=== PATIENT | female | born 1995 | race Two or more races ===

== ENCOUNTER 2020-05-19 17:07 | Outpatient (REF) | payer OTHER, SELFPAY | END 2020-05-19 17:08 | disposition home or self-care (01) | LOC: HO.LAB 17:07 | PROVIDERS: Visit Provider Internal Medicine | DX: Z20.828 Contact with and (suspected) exposure to other viral communicable diseases (principal) | CPT/HCPCS: C9803; U0003 ==

== ENCOUNTER → 2020-11-11 09:28 | Outpatient (BNVA) | payer OTHER, SELFPAY | PROVIDERS: PCP Internal Medicine; Referring Provider Internal Medicine; Visit Provider Psychiatry & Neurology Neurology | DX: Z13.89 Encounter for screening for other disorder (principal) | CPT/HCPCS: 99202 ==

== ENCOUNTER → 2021-02-03 09:56 | Outpatient (BNVA) | payer OTHER, SELFPAY | PROVIDERS: PCP Internal Medicine; Visit Provider Psychiatry & Neurology Neurology ==

== ENCOUNTER → 2021-02-04 11:09 | Outpatient (REF) | payer OTHER, SELFPAY ==
--- NOTE | ~2021-02-04 | XR_ITS ---
EXAMINATION: XR CHEST CLINICAL INFORMATION: Shortness of breath COMPARISON: None TECHNIQUE: 2 views of the chest were obtained. FINDINGS: The lungs are well-expanded and clear of acute process. The heart size and pulmonary vascularity is normal. No gross bony abnormality seen. XR/XR chest 2V IMPRESSION: Unremarkable chest exam.
== END ==
LOC: HO.SL 11:09
PROVIDERS: PCP Internal Medicine; Visit Provider Psychiatry & Neurology Neurology
DX: G47.33 Obstructive sleep apnea (adult) (pediatric) (principal); R06.02 Shortness of breath
CPT/HCPCS: 71046; 95806

== ENCOUNTER 2021-02-04 13:47 | Outpatient (REF) | payer OTHER, SELFPAY ==
[2021-02-04 16:29] LABS: MANUAL DIFF FLAG NO
[2021-02-04 16:33] LABS: Basophils Percent Auto 0.3 % (0-2); Eosinophils Absolute Auto 0.1 X10*3/uL (0.0-0.4); Eosinophils Percent Auto 1.1 % (0-4); Hematocrit 40.4 % (37-47); Hemoglobin 13.2 g/dl (12.0-16.0); Imm Gran Abs Auto 0.02 X10*3/uL (0.00-0.03); Imm Gran Pct Auto 0.2 % (0.0-0.4); Lymphocytes Absolute Auto 2.1 X10*3/uL (1.2-4.9); Lymphocytes Percent Auto 22.7 % (20-40); Mean Corpuscular HGB Conc 32.7 g/dl (31.0-35.0); Mean Corpuscular Volume 82.8 fL (80-98); Mean Platelet Volume 10.1 fL (9.4-12.3); Monocytes Absolute Auto 0.6 X10*3/uL (0.1-1.2); Neutrophils Absolute Auto 6.2 X10*3/uL (2.0-8.3); Neutrophils Percent Auto 68.7 % (45-73); Platelet Count 489 X10*3/uL (160-400); Red Blood Count 4.88 X10*6/uL (4.20-5.50); Red Cell Distribution Width 12.7 % (11.0-16.0); White Blood Count 9.1 X10*3/uL (4.8-10.8)
[2021-02-04 16:51] LABS: Anion Gap 14 (12-20); Blood Urea Nitrogen 12 mg/dL (9-16); Calcium 9.7 mg/dL (8.4-10.2); Carbon Dioxide 23 mmol/L (22-29); Chloride 105 mmol/L (96-108); Estimated Glomerular Filt Rate > 60; Glucose Random 82 mg/dL (60-115); Potassium 4.2 mmol/L (3.3-5.1); Sodium 138 mmol/L (135-145)
[2021-02-04 16:52] LABS: D Dimer < 200 NG/ML
== END 2021-02-04 13:48 | disposition home or self-care (01) ==
LOC: HO.HMGCX 13:47
PROVIDERS: PCP Internal Medicine; Visit Provider Nurse Practitioner Family
DX: R06.02 Shortness of breath (principal)
CPT/HCPCS: 36415; 80048; 85025; 85379

== ENCOUNTER 2021-11-09 09:00 | Outpatient (RCR) | payer OTHER, SELFPAY ==
--- NOTE | 2021-09-17 17:26 | MHC.PT.EP ---
[facility] [place] Office [place] Office [place] Office [address] Nallely Higgins [address] [phone] F: [phone] F: [phone] F: [phone] F: [phone] Physical Therapy Plan of Care Date of Evaluation: Date of Surgery: Diagnosis: LBP unspecified. Assessment: Pt is a 26 y/o female referred to PT for eval and treat of LBP who presents with lumbopelvic dysfunction resulting in decreased tolerance and ability to perform static standing and sitting tasks for duration as well as lifting objects of weight, and disturbed sleep secondary to decreased hip and core strength, +prone instability test, as well as decreased posture, increased tissue tension, Pelvic inflairing, and pain. Pt is deemed an appropriate candidate to receive skilled PT in order to address her physical limitations to improve her functional ability. Frequency and Duration: The patient will be seen 2 x / wk x 5 wks. Short Term Goals: initiate HEP improve baseline pain to < 4/10; initial 7/10. Intermediate Goals: I with HEP improve B hip abd MMT to > 4+/5; initial 4/5. Improve TrAC MMT to > good; initial : fair (-) Pt will report < 1/4 disturbed nights' sleep d/t back pain; initial: 1/2 disturbed. Treatment Plan: Modalities to reduce pain, spasms and effusion. Manual therapy to restore motion and function. Therapeutic exercise to improve strength and flexibility. Neuromuscular re-education for posture and balance. Therapeutic activities to return to functional activities of daily living. Electronically signed by: David Delgado PT. Please sign and return to therapist. Thank you for your referral.
--- NOTE | 2021-11-09 13:52 | MHC.PT.DC ---
[facility] [place] Office [place] Office [place] Office [address] Laurita Higgins [address] [phone] F: [phone] F: [phone] F: [phone] F: [phone] Physical Therapy Discharge Report Diagnosis: LBP unspecified. Date of Surgery: Date of Evaluation: 09/17/21 Date of Discharge: 11/09/21 Treatments to Date: 12 Cancellations to Date: No Shows to Date: Discharge Status: Achieved Goals Improved Function Independent with HEP Discharge Summary: Marcella has been an active and motivated participant in her therapy in and out of the clinic, she has met all of her therapeutic goals, is I with a comprehensive home program for spinal stability and mobility. She is in agreement with DC today. Electronically signed by: David Delgado PT. Please sign and return to therapist. Thank you for your referral.
== END 2021-11-09 13:52 | disposition home or self-care (01) ==
LOC: HO.PTCHIC 09:00
PROVIDERS: Visit Provider Internal Medicine
DX: M54.50 Low back pain, unspecified (principal)
CPT/HCPCS: 97014; 97110; 97140; 97161; 97530

== ENCOUNTER 2021-11-17 08:04 | Outpatient (REF) | payer OTHER, SELFPAY ==
[2021-11-17 11:27] LABS: MANUAL DIFF FLAG NO
[2021-11-17 11:34] LABS: Basophils Percent Auto 0.4 % (0-2); Eosinophils Absolute Auto 0.1 X10*3/uL (0.0-0.4); Eosinophils Percent Auto 2.1 % (0-4); Hematocrit 38.6 % (37.0-47.0); Hemoglobin 12.2 g/dl (12.0-16.0); Imm Gran Abs Auto 0.02 X10*3/uL (0.00-0.03); Imm Gran Pct Auto 0.3 % (0.0-0.4); Lymphocytes Absolute Auto 1.8 X10*3/uL (1.2-4.9); Lymphocytes Percent Auto 26.7 % (20-40); Mean Corpuscular HGB Conc 31.6 g/dl (31.0-35.0); Mean Corpuscular Hemoglobin 26.7 pg (27.0-33.0); Mean Corpuscular Volume 84.5 fL (80.0-98.0); Mean Platelet Volume 10.4 fL (9.4-12.3); Monocytes Absolute Auto 0.4 X10*3/uL (0.1-1.2); Monocytes Percent Auto 6.5 % (2-11); Neutrophils Absolute Auto 4.4 x10*3/uL (2.0-8.3); Platelet Count 466 X10*3/uL (160-400); Red Blood Count 4.57 X10*6/uL (4.20-5.50); Red Cell Distribution Width 13.2 % (11.0-16.0); White Blood Count 6.8 X10*3/uL (4.8-10.8)
[2021-11-17 11:53] LABS: Alanine Aminotransferase 19 U/L (0-31); Anion Gap 10 (12-20); Aspartate Amino Transferase 17 U/L (5-31); Blood Urea Nitrogen 14 mg/dL (9-16); C Reactive Protein 0.24 mg/dL (< or = 0.50); Carbon Dioxide 24 mmol/L (22-29); Chloride 108 mmol/L (96-108); Cholesterol 155 mg/dL; Estimated Glomerular Filt Rate > 60; Glucose Fasting 86 mg/dL (60-99); HDL Cholesterol 44 mg/dL; LDL Cholesterol Calculated 98 mg/dl; Potassium 4.4 mmol/L (3.3-5.1); Sodium 138 mmol/L (135-145); Triglycerides 65 mg/dL
[2021-11-17 12:16] LABS: TSH reflex Free T4 0.66 uIU/mL (0.32-4.0); Vitamin D 25-OH Total 11.8 ng/mL (>30)
[2021-11-17 12:19] LABS: Folate 10.8 ng/mL (> or = 4.0); Vitamin B12 337 pg/mL (200-900)
[2021-11-17 12:29] LABS: Erythrocyte Sedimentation Rate 10 MM/HR (0-20)
== END 2021-11-17 08:05 | disposition home or self-care (01) ==
LOC: HO.HMGCLDS 08:04
PROVIDERS: Visit Provider Internal Medicine
DX: Z00.01 Encounter for general adult medical examination with abnormal findings (principal); M79.609 Pain in unspecified limb; R20.2 Paresthesia of skin; R53.83 Other fatigue
CPT/HCPCS: 36415; 80048; 80061; 82306; 82607; 82746; 84443; 84450; 84460; 85025; 85652; 86140

== ENCOUNTER 2021-12-31 10:39 | Outpatient (REF) | payer OTHER, SELFPAY ==
--- NOTE | ~2021-12-31 | XR_ITS ---
EXAMINATION: XR LUMBOSACRAL SPINE CLINICAL INFORMATION: M54.50 - Low back pain, unspecified. COMPARISON: Dorsal spine 12/31/2021 TECHNIQUE: Three views of the lumbosacral spine. FINDINGS: Normal lumbar segmentation with 5 nonrib-bearing lumbar vertebrae of normal height and normal lumbar lordosis. No lumbar vertebral compression, spondylolisthesis, or disc space narrowing. No destructive process. The SI joints and visualized sacrum are unremarkable. XR/XR lumbar spine 2-3V IMPRESSION: Unremarkable examination.
--- NOTE | ~2021-12-31 | XR_ITS ---
EXAMINATION: XR THORACOLUMBAR SPINE CLINICAL INFORMATION: M54.89 - Other dorsalgia. COMPARISON: Chest radiographs 02/04/2021 TECHNIQUE: Dorsal spine is imaged in 3 views. FINDINGS: Normal thoracic segmentation with 12 rib-bearing thoracic vertebrae of normal height and normal thoracic kyphosis. No vertebral compression, disc narrowing, spondylolisthesis, destructive process, or paraspinal soft tissue swelling. Visualized lungs clear. Posterior costophrenic sulci are well-defined. XR/XR thoracic spine 2V IMPRESSION: Unremarkable thoracic spine.
[2021-12-31 14:00] LABS: Appearance Urine HAZY; Color Urine YELLOW; Glucose Urine UA NEG (NEG); Leukocyte Esterase Urine 1+ (NEG); Nitrite Urine POS (NEG); PH 5.5 (5.0-8.0); Specific Gravity - Urine 1.025 (1.005-1.025); UACC Culture Trigger YES; Urine Blood 3+ (NEG); Urine Ketones NEG (NEG); Urine Protein NEG (NEG-TRACE)
[2021-12-31 14:11] LABS: Bacteria Urine 4+ /LPF
[2021-12-31 14:19] LABS: C Reactive Protein 0.58 mg/dL (< or = 0.50)
[2021-12-31 14:50] LABS: Erythrocyte Sedimentation Rate 20 MM/HR (0-20)
== END 2021-12-31 10:40 | disposition home or self-care (01) ==
LOC: HO.HMGCX 10:39
PROVIDERS: PCP Internal Medicine; Visit Provider Internal Medicine
DX: M54.89 Other dorsalgia (principal)
CPT/HCPCS: 36415; 72070; 72100; 81001; 81003; 85652; 86140; 87086; 87088; 87186

== ENCOUNTER 2022-02-23 16:53 | Outpatient (REF) | payer OTHER, SELFPAY | END 2022-02-23 16:54 | disposition home or self-care (01) | LOC: HO.LAB 16:53 | PROVIDERS: PCP Internal Medicine; Visit Provider Internal Medicine | DX: E55.9 Vitamin D deficiency, unspecified (principal); R53.83 Other fatigue | CPT/HCPCS: 36415; 82306 ==

== ENCOUNTER 2022-10-30 13:06 | Outpatient (REF) | payer OTHER, SELFPAY ==
[2022-10-30 15:17] LABS: MANUAL DIFF FLAG NO
[2022-10-30 15:21] LABS: Basophils Percent Auto 0.5 % (0-2); Eosinophils Absolute Auto 0.1 X10*3/uL (0.0-0.4); Eosinophils Percent Auto 1.5 % (0-4); Hematocrit 41.1 % (37.0-47.0); Hemoglobin 13.2 g/dl (12.0-16.0); Imm Gran Abs Auto 0.02 X10*3/uL (0.00-0.03); Imm Gran Pct Auto 0.2 % (0.0-0.4); Lymphocytes Percent Auto 24.1 % (20-40); Mean Corpuscular HGB Conc 32.1 g/dl (31.0-35.0); Mean Corpuscular Hemoglobin 26.5 pg (27.0-33.0); Mean Corpuscular Volume 82.5 fL (80.0-98.0); Mean Platelet Volume 10.5 fL (9.4-12.3); Monocytes Absolute Auto 0.6 X10*3/uL (0.1-1.2); Monocytes Percent Auto 6.7 % (2-11); Neutrophils Absolute Auto 5.5 x10*3/uL (2.0-8.3); Platelet Count 450 X10*3/uL (160-400); Red Blood Count 4.98 X10*6/uL (4.20-5.50); Red Cell Distribution Width 13.2 % (11.0-16.0); White Blood Count 8.2 X10*3/uL (4.8-10.8)
[2022-10-30 15:25] LABS: Estimated Average Glucose 105 mg/dL; Hemoglobin A1c % 5.3 %
[2022-10-30 16:30] LABS: Anion Gap 11 (12-20); Blood Urea Nitrogen 13 mg/dL (9-16); Calcium 9.5 mg/dL (8.4-10.2); Carbon Dioxide 28 mmol/L (22-29); Chloride 107 mmol/L (96-108); Estimated Glomerular Filt Rate > 60; Glucose Random 104 mg/dL (60-115); Potassium 4.3 mmol/L (3.3-5.1); Sodium 142 mmol/L (135-145)
== END 2022-10-30 13:07 | disposition home or self-care (01) ==
LOC: HO.HMGCLDS 13:06
PROVIDERS: PCP Internal Medicine; Visit Provider Physician Assistant
DX: R42 Dizziness and giddiness (principal); R51.9 Headache, unspecified
CPT/HCPCS: 36415; 80048; 83036; 84443; 85025

== ENCOUNTER 2022-11-23 08:40 | Outpatient (REF) | payer OTHER, SELFPAY ==
[2022-11-23 11:12] LABS: MANUAL DIFF FLAG NO
[2022-11-23 11:27] LABS: Appearance Urine Cloudy; Color Urine Yellow; Glucose Urine UA Negative (Negative); Leukocyte Esterase Urine Trace (Negative); Nitrite Urine Positive (Negative); Specific Gravity - Urine 1.025 (1.005-1.025); UMIC TRIGGER UACC YES; Urine Blood Small (1+) (Negative); Urine Ketones Negative (Negative); Urine Protein Negative (Neg-Trace)
[2022-11-23 11:34] LABS: Basophils Percent Auto 0.5 % (0-2); Eosinophils Percent Auto 0.3 % (0-4); Hematocrit 39.5 % (37.0-47.0); Hemoglobin 12.8 g/dl (12.0-16.0); Imm Gran Abs Auto 0.01 X10*3/uL (0.00-0.03); Imm Gran Pct Auto 0.2 % (0.0-0.4); Lymphocytes Absolute Auto 1.6 X10*3/uL (1.2-4.9); Lymphocytes Percent Auto 25.6 % (20-40); Mean Corpuscular HGB Conc 32.4 g/dl (31.0-35.0); Mean Corpuscular Hemoglobin 26.7 pg (27.0-33.0); Mean Corpuscular Volume 82.3 fL (80.0-98.0); Mean Platelet Volume 10.4 fL (9.4-12.3); Monocytes Absolute Auto 0.5 X10*3/uL (0.1-1.2); Monocytes Percent Auto 8.6 % (2-11); Neutrophils Percent Auto 64.8 % (45-73); Platelet Count 451 X10*3/uL (160-400); Red Cell Distribution Width 13.4 % (11.0-16.0); White Blood Count 6.2 X10*3/uL (4.8-10.8)
[2022-11-23 11:45] LABS: Bacteria Urine 4+ (None Seen); Hyaline Casts Urine 0-2 /LPF (0-2); Squamous Epithelial Cell Urine 0-2 /HPF (0-2); UACC Culture Trigger YES
[2022-11-23 12:00] LABS: Cholesterol 172 mg/dL; HDL Cholesterol 50 mg/dL; LDL Cholesterol Calculated 112 mg/dl; Triglycerides 51 mg/dL
[2022-11-23 12:18] LABS: Vitamin D 25-OH Total 28.4 ng/mL (>30)
== END 2022-11-23 08:41 | disposition home or self-care (01) ==
LOC: HO.HMGCLDS 08:40
PROVIDERS: PCP Internal Medicine; Visit Provider Internal Medicine
DX: Z00.01 Encounter for general adult medical examination with abnormal findings (principal); R13.10 Dysphagia, unspecified; R06.09 Other forms of dyspnea; D75.839 Thrombocytosis, unspecified
CPT/HCPCS: 36415; 80061; 81001; 82306; 84443; 85025; 87086; 87088; 87186

== ENCOUNTER 2023-02-18 07:22 | Outpatient (REF) | payer OTHER, SELFPAY ==
--- NOTE | 2023-02-18 08:08 | PFT_ITS ---
FLOWS: 1. FEV1 96% of predicted at 2.65 L. 2. FVC 90% of predicted at 2.90 L. 3. FEV1 to FVC ratio of 0.91. 4. No bronchodilator response except in small to medium airways. LUNG VOLUMES: 1. Total lung capacity 73% of predicted at 3.16 L. 2. Residual volume 29% of predicted at 0.33 L. 3. Slow vital capacity 88% of predicted at 3.83 L. 4. Expiratory reserve volume 30% of predicted at 0.37 L. 5. Diffusion capacity is normal. IMPRESSION: Mild restrictive ventilatory defect with no bronchodilator response except in small to medium airways. Decreased expiratory reserve volume suggest extrathoracic restriction, likely secondary to abdominal obesity. Damien Moss MD AP/MODL / [phone]
== END 2023-02-18 07:23 | disposition home or self-care (01) ==
LOC: HO.RESP 07:22
PROVIDERS: PCP Internal Medicine; Visit Provider Internal Medicine
DX: R06.09 Other forms of dyspnea (principal)
CPT/HCPCS: 94010; 94727; 94729

== ENCOUNTER → 2023-02-18 08:08 | Outpatient (BNV) | payer OTHER, SELFPAY | PROVIDERS: PCP Internal Medicine; Visit Provider Internal Medicine Pulmonary Disease | DX: R06.09 Other forms of dyspnea (principal) | CPT/HCPCS: 94060; 94727; 94729 ==

== ENCOUNTER 2023-03-17 08:28 | Outpatient (REF) | payer OTHER, SELFPAY | END 2023-03-17 08:29 | disposition home or self-care (01) | LOC: HO.RESP 08:28 | PROVIDERS: PCP Internal Medicine; Visit Provider Internal Medicine | DX: Z13.89 Encounter for screening for other disorder (principal) ==

== ENCOUNTER 2023-04-22 12:39 | Outpatient (AMB) | payer OTHER, SELFPAY ==
[2023-04-22 13:05] VITALS: BP 118/70; PULSE 85; O2SAT 98; BMI 31.9
--- NOTE | 2023-04-22 13:05 | A.OFFPC_ITS ---
Vital Signs 04/22/23 13:05 Height 4 ft 11 in Weight 158 lb BMI 31.9 BP 118/70 Blood Pressure Location Lt brachial Position Sitting Pulse 85 Pulse Source Pulse Oximeter Pulse Oximetry (%) 98 Intake Visit Reasons: discuss weight gain go over test results Intake Note: pt is here today to discuss weight gain and test results Allergies sumatriptan Adverse Reaction (Unknown, Verified 04/24/23 02:23) anxiety Medication List - Last Reconciled 04/24/23 by Joan Tovar MD albuterol sulfate 90 mcg/actuation (ProAir HFA) 2 puffs inhalation Q4-6H PRN fluticasone propionate 50 mcg/actuation (Children's Flonase Allergy Relief) 2 sprays intranasal DAILY Tobacco use date assessed: 04/22/23 Dental Screening Dental Screen Date: 04/22/23 Did you have a dental visit in the last 12 months?: No Did you have a dental problem in the last 6 months where you did not have access to dental care?: No Was dental information given to patient?: Patient has dentist HPI discuss weight gain go over test results HPI Details 28-year-old lady here today complaining of rapid weight gain after starting depo-vera approximately 3 months ago, prescribed by her OBGYN patient states that she used to weigh 145 lb after she delivered her baby. Patient states that she has been exercising, has cut back on eating rice, bread, and soda. However she continues to gain weight. Stopped using Depo-Provera about 2 weeks ago. Also complains of joint pain and stiffness in last 2 digits in left hand. Denies trauma, hurts when she bends or tries to grasp anything with her left hand. She is also here to discuss results of her pulmonary function test. Still has occasional cough dry, nonproductive, with dyspnea on exertion , which has been present since she contract COVID several months ago. [facility] Medical History (Updated 04/24/23 @ 02:27 by Joan Tovar MD) Obesity (BMI 30.0-34.9) Chronic cough History of COVID-19 OROPEZA (dyspnea on exertion) Cholelithiasis Vitamin D deficiency Lumbago Witnessed apneic spells Surgical History Hx laparoscopic cholecystectomy History of eye surgery History of tonsillectomy Family History Father Unknown family medical history Mother Unknown family medical history Substance use disorder Brother No problems noted. Brother No problems noted. Brother No problems noted. Brother No problems noted. Brother No problems noted. Sister No problems noted. Sister No problems noted. Father Substance use disorder Social History Housing: Apartment Alcohol intake: current Alcohol intake frequency: a few times a month Patient Tobacco Use Status: Never used Tobacco e-Cigarette/Vaping Use: Never Used service: No Current occupational status: employed Cognitive needs: No Hearing needs: No Vision needs: Yes Female Reproductive History Menstrual Date of last menstrual period: 04/14/23 Questionnaire Thrive Questionnaire Date Thrive assessed: 11/23/22 AUDIT C Alcohol Use Questionnaire (AUDIT-C) 1. How often do you have a drink containing alcohol?: Monthly or less 2. How many drinks containing alcohol do you have on a typical day when you are drinking?: 1 or 2 Total Score: 1 ADAN-7 AMB Questionnaire ADAN-7 Date ADAN - 7 assessed: 11/23/22 Source: Developed by Drs. Quan Vera, Corinne Brunner, Ramos Motta and colleagues, with an educational tex from [employer]. Review of Systems Const Reports no additional complaints ENT Reports no additional complaints Card Denies chest pain, Denies chest pain with activity and Denies lightheadedness Resp Reports as per HPI GI Reports no additional complaints Reports no additional complaints Musc Reports no additional complaints and Reports as per HPI Skin/Breast Denies lesions Neuro Reports no additional complaints Endo Reports no additional complaints Ace/Lymph Reports no additional complaints Aller/Immun Reports no additional complaints Physical exam (Primary Care) Vital Signs: Last Vital Signs Pulse 85 04/22/23 13:05 BP 118/70 04/22/23 13:05 Pulse Ox 98 04/22/23 13:05 BMI result Body Mass Index 31.9 Tobacco/Smoking Status: Tobacco use Status Tobacco use date assessed 04/22/23 04/22/23 13:11 Patient Tobacco Use Status Never used Tobacco 04/22/23 13:11 e-Cigarette/Vaping Use Never Used 04/22/23 13:11 Thrive Assessment: Date of Thrive Assessment Date Thrive assessed 11/23/22 04/22/23 13:11 Const General: comfortable and no acute distress Nutritional Appearance: obese Orientation/consciousness: patient oriented x3 [facility] General nose exam: Normal external nose present Mouth: Normal oral and palatal mucosa present, oropharynx normal and moist mucous membranes Neck Other: Supple with no lymphadenopathy, thyroid gland nonpalpable Neck: Yes no meningeal signs Resp Auscultation: clear to auscultation bilaterally Cardio Other: S1-S2 present regular rate and rhythm GI Inspection: Yes obesity Palpation (GI): Soft to palpation, nontender, no guarding, not rigid and no masses Auscultation: normal bowel sounds Skin General skin exam: no rashes or lesions noted Neuro General: patient oriented x3, gait normal, moves all extremities, Normal light touch and pain sensation, no meningeal signs, no focal motor deficits and CN's II-XI intact bilaterally Extrem Other: Slight swelling noted on lateral aspect of left 5th digit, difficulty with making a fist with left hand,, pain elicited on hyperabduction of fingers Assessment and Plan Assessment & Plan (1) Pain in finger joint on movement: Code(s): M25.549 - Pain in joints of unspecified hand Plan: X-ray of left hand ordered, advised to try massaging diclofenac gel 1% which is available [id number] to affected area 3 to 4 times a day as needed for pain. (2) OROPEZA (dyspnea on exertion): Comment: Started 2 years ago after she had a COVID infection Code(s): R06.09 - Other forms of dyspnea Plan: Pulmonary function test showed possible restrictive component likely due to obesity, no significant response to bronchodilators, referral to pulmonary ordered (3) Chronic cough: Code(s): R05.3 - Chronic cough (4) Obesity (BMI 30.0-34.9): Code(s): E66.9 - Obesity, unspecified Plan: Referred to single ending machine operator Orders: Orders XR hand LT min 3V 04/22/23 M25.549 - Pain in joints of unspecified hand Referrals Pulmonary Medicine Referral R05.3 - Chronic cough, R06.09 - Other forms of dyspnea Coding Level of Care Code Est Pt Level 3 (87493) Diagnoses Pain in finger joint on movement M25.549 OROPEZA (dyspnea on exertion) R06.09 Chronic cough R05.3 Obesity (BMI 30.0-34.9) E66.9
== END 2023-04-22 14:13 | disposition home or self-care (01) ==
PROVIDERS: PCP Internal Medicine; Visit Provider Internal Medicine
DX: M25.549 Pain in joints of unspecified hand (principal); R06.09 Other forms of dyspnea; E66.9 Obesity, unspecified; Z68.31 Body mass index [BMI] 31.0-31.9, adult; R05.3 Chronic cough
CPT/HCPCS: 99213

== ENCOUNTER 2023-04-22 13:29 | Outpatient (REF) | payer OTHER, SELFPAY ==
--- NOTE | ~2023-04-22 | XR_ITS ---
EXAMINATION: XR HAND, LEFT CLINICAL INFORMATION: Pain in unspecified joints of hand COMPARISON: None available. TECHNIQUE: PA, lateral, and oblique views of the left hand. FINDINGS: Moderate degenerative changes first carpometacarpal joint with joint space narrowing and hypertrophic change. Alignment preserved. No displaced fracture. XR/XR hand LT min 3V IMPRESSION: Moderate degenerative changes first carpometacarpal joint. No displaced fracture. Recommend follow-up imaging in 10-14 days if fracture is suspected.
== END 2023-04-22 13:30 | disposition home or self-care (01) ==
LOC: HO.HMGCX 13:29
PROVIDERS: PCP Internal Medicine; Visit Provider Internal Medicine
DX: M25.542 Pain in joints of left hand (principal)
CPT/HCPCS: 73130

== ENCOUNTER 2024-05-23 08:02 | Outpatient (AMB) | payer OTHER, SELFPAY ==
--- NOTE | 2024-05-23 08:08 | MHC.OFFWIV ---
Intake Vital Signs 05/23/24 08:09 Height 4 ft 11 in Weight 164 lb BMI 33.1 BP 112/70 Blood Pressure Location Rt brachial Position Sitting Pulse 79 Pulse Source Pulse Oximeter Pulse Oximetry (%) 98 Intake Visit Reasons: EP Back pain, ltwrist, lt knee pain Intake Note: pt is here for back pain, left wrist pain, and left knee pain Patient Tobacco Use Status: Never used Tobacco Allergies sumatriptan Adverse Reaction (Unknown, Verified 05/23/24 08:09) anxiety Do you need a note to return to daycare/school/sports/work: No HPI HPI Comments History of Present Illness Details Patient is a 29-year-old female complaining of back pain and left wrist pain. She does have a baby and she is carrying around. She tells me she has chronic back pain and an MRI showed she had issues with 2 discs in her low back. She went to [facility] and they told her to do physical therapy which she did and they said if the pain gets worse she may need cortisone shots. She tells me the pain goes down her spine from her mid back to her low back but does not radiate into her buttocks. She tells me it is a dull aching pain. She denies any loss of control of her bladder or bowels. Her 2nd complaint is that her left wrist has been hurting her more. She states that she notices when she moves her wrist a certain way, it hurts more. She denies any injury to the wrist but notes that she is carrying around a baby in a carrier every day. She has not tried using a wrist brace. [facility] Medical History (Updated 05/23/24 @ 08:24 by Rachelle Ruiz PA-C) Lumbago Obesity (BMI 30.0-34.9) Chronic cough History of COVID-19 OROPEZA (dyspnea on exertion) Cholelithiasis Vitamin D deficiency Witnessed apneic spells Surgical History Hx laparoscopic cholecystectomy History of eye surgery History of tonsillectomy Family History Father Unknown family medical history Mother Unknown family medical history Substance use disorder Brother No problems noted. Brother No problems noted. Brother No problems noted. Brother No problems noted. Brother No problems noted. Sister No problems noted. Sister No problems noted. Father Substance use disorder Social History Housing: Apartment Alcohol intake: current Alcohol intake frequency: a few times a month Patient Tobacco Use Status: Never used Tobacco e-Cigarette/Vaping Use: Never Used service: No Current occupational status: employed Cognitive needs: No Hearing needs: No Vision needs: Yes Review of Systems Const All systems reviewed & are unremarkable except as noted in HPI and below Physical Exam Vital Signs: Last Vital Signs Pulse 79 05/23/24 08:09 BP 112/70 05/23/24 08:09 Pulse Ox 98 05/23/24 08:09 BMI result Body Mass Index 33.1 Const General: cooperative, healthy appearing and comfortable Orientation/consciousness: patient oriented x3 HEENT Head: Yes normal to inspection and Yes normocephalic General nose exam: Normal external nose present Face and sinus: Yes normal facial exam Eyes General: appearance normal, both eyes and all related structures Resp Effort & Inspection: normal respiratory effort and able to speak in complete sentences Back/Spine/Pelvis Cervical Spine: cervical ROM normal and No Cervical spine tenderness Thoracic/Lumbar Spine: thoracic and lumbar spine normal to inspection, pain with thoraco-lumbar ROM, paraspinal muscle tenderness bilaterally in the mid thoracic, in the lower thoracic, in the upper lumbar and in the mid lumbar, No thoracic spinal tenderness and lumbar spinal tenderness at L1, at L2 and at L3 Neuro General: patient oriented x3 Assessment & Plan Assessment & Plan (1) Left wrist pain: Code(s): M25.532 - Pain in left wrist Plan: Recommended wearing a wrist brace and trying to carry her child and a carrier using the right arm. Can take ibuprofen as needed for pain. If no improvement, she should follow up with her PCP. (2) Lumbago: Code(s): M54.50 - Low back pain, unspecified Qualifiers: Chronicity: acute Back pain laterality: midline Sciatica presence: without sciatica Qualified Code(s): M54.50 - Low back pain, unspecified Plan: Recommended she follow up with [facility] as she already is an established patient with them. Plan see above Coding Level of Care Code Est Pt Level 4 (65396) Diagnoses Left wrist pain M25.532 Acute midline low back pain without sciatica M54.50 Chronicity: acute Back pain laterality: midline Sciatica presence: without sciatica
[2024-05-23 08:09] VITALS: BP 112/70; PULSE 79; O2SAT 98; BMI 33.1
== END 2024-05-23 08:23 | disposition home or self-care (01) ==
PROVIDERS: PCP Internal Medicine; Visit Provider Physician Assistant
DX: M25.532 Pain in left wrist (principal); M54.50 Low back pain, unspecified

== ENCOUNTER → 2024-05-23 08:02 | Outpatient (BNVA) | payer OTHER, SELFPAY | PROVIDERS: PCP Internal Medicine; Visit Provider Physician Assistant | DX: M25.532 Pain in left wrist (principal); M54.50 Low back pain, unspecified | CPT/HCPCS: 99212 ==

== ENCOUNTER 2025-03-28 09:55 | Outpatient (AMB) | payer OTHER, SELFPAY ==
[2025-03-28 10:03] VITALS: BP 100/70; PULSE 85; RESP 16; TEMP 36.7; O2SAT 95; BMI 30.3
--- NOTE | 2025-03-28 10:03 | MHC.PC.OV ---
Vital Signs 03/28/25 10:03 Height 4 ft 11 in Weight 150 lb BMI 30.3 BP 100/70 Blood Pressure Location Rt brachial Position Sitting Respiration 16 Pulse 85 Pulse Source Pulse Oximeter Temp 98.0 F Temp Source Oral Pulse Oximetry (%) 95 Oxygen Delivery Method Room Air Intake Visit Reasons: migraines Intake Note: Pt is here today ED [facility] f/u migraines Allergies sumatriptan Adverse Reaction (Unknown, Verified 03/28/25 10:21) anxiety Medication List - Last Reconciled 03/28/25 by Joan Tovar MD albuterol sulfate 90 mcg/actuation (ProAir HFA) 2 puffs inhalation Q4-6H PRN fluticasone propionate 50 mcg/actuation (Children's Flonase Allergy Relief) 2 sprays intranasal DAILY Tobacco use date assessed: 04/22/23 Dental Screening Dental Screen Date: 04/22/23 HPI migraines HPI Details 30-year-old lady with history of migraine headaches, here today for follow-up. Was recently seen at the [facility] ER complaining of 5 day history of pain initially behind her right eye now spreading to both eyes , which is atypical for her usual headaches. Denies any accompanying photophobia, no change in vision no history of head trauma, no fever, but reports some nausea but no vomiting, no neurologic deficits. Took ibuprofen without any relief. Labs done at the ER showed no anemia, no electrolyte abnormality glucose levels within normal, CT scan of brain unremarkable. She was treated with a cocktail that includes Toradol, Compazine, Benadryl and given IV fluids, given a dose of Decadron with improvement of headache. At present patient states that she is feeling better, would like to be referred to neurology for further evaluation [facility] Medical History Lumbago Obesity (BMI 30.0-34.9) Chronic cough History of COVID-19 OROPEZA (dyspnea on exertion) Cholelithiasis Vitamin D deficiency Witnessed apneic spells Surgical History Hx laparoscopic cholecystectomy History of eye surgery History of tonsillectomy Family History Father Unknown family medical history Mother Unknown family medical history Substance use disorder Brother No problems noted. Brother No problems noted. Brother No problems noted. Brother No problems noted. Brother No problems noted. Sister No problems noted. Sister No problems noted. Father Substance use disorder Social History Housing: Apartment Alcohol intake: current Alcohol intake frequency: a few times a month Patient Tobacco Use Status: Never used Tobacco e-Cigarette/Vaping Use: Never Used service: No Current occupational status: employed Cognitive needs: No Hearing needs: No Vision needs: Yes Questionnaire Thrive Questionnaire Date Thrive assessed: 11/23/22 ADAN-7 AMB Questionnaire ADAN-7 Date ADAN - 7 assessed: 11/23/22 Source: Developed by Drs. Quan Vera, Corinne Brunner, Ramos Motta and colleagues, with an educational tex from [employer]. Review of Systems Const All systems reviewed & are unremarkable except as noted in HPI and below Physical exam (Primary Care) Vital Signs: Last Vital Signs Temp 98.0 F 03/28/25 10:03 Pulse 85 03/28/25 10:03 Resp 16 03/28/25 10:03 BP 100/70 03/28/25 10:03 Pulse Ox 95 03/28/25 10:03 Oxygen Delivery Method Room Air 03/28/25 10:03 BMI result Body Mass Index 30.3 Tobacco/Smoking Status: Tobacco use Status Tobacco use date assessed 04/22/23 03/28/25 10:05 Patient Tobacco Use Status Never used Tobacco 03/28/25 10:05 e-Cigarette/Vaping Use Never Used 03/28/25 10:05 Thrive Assessment: Date of Thrive Assessment Date Thrive assessed 11/23/22 03/28/25 10:05 Const General: no acute distress Nutritional Appearance: obese Orientation/consciousness: patient oriented x3 [facility] General nose exam: Normal external nose present Mouth: Normal oral and palatal mucosa present, oropharynx normal and moist mucous membranes Eyes General: appearance normal, both eyes and all related structures Neck Other: Supple with no lymphadenopathy, thyroid gland nonpalpable Neck: Yes no meningeal signs Resp Auscultation: clear to auscultation bilaterally Cardio Other: S1-S2 present regular rate and rhythm GI Inspection: Yes obesity Palpation (GI): Soft to palpation, nontender, no guarding, not rigid and no masses Auscultation: normal bowel sounds Skin General skin exam: no rashes or lesions noted Neuro General: patient oriented x3, gait normal, moves all extremities, Normal light touch and pain sensation, no meningeal signs, no focal motor deficits and CN's II-XI intact bilaterally Extrem General: Yes full ROM, Yes no joint enlargement, Yes no clubbing, cyanosis or edema and Yes normal gait Psych Affect: normal affect Coding Level of Care Code Est Pt Level 4 (08346) Diagnoses Recurrent headache R51.9 Assessment & Plan Assessment & Plan (1) Recurrent headache: Code(s): R51.9 - Headache, unspecified Plan: Prescription given for short course of Fioricet, to take only as needed for severe headaches. 10 capsules with no refills. Neurology consult ordered Orders: Referrals Neurology Referral R51.9 - Headache, unspecified Medications: New [id number] [id number] mg 1 cap PO .daily PRN 10 caps 0RF headache
--- OUTSIDE RECORDS SUMMARY | 2025-03-28 11:38 | XMS_ITS | Encounter Summary ---
Author Organization [facility] Address [address] [place] [id number] Phone Care Team Providers Care Gun Stock Maker Name Role Phone Joan Tovar MD Primary Care Provider Encounter Details Date Type Department Care Team (Late st Contact Info) Description 09/17/2022 Procedure [facility], Ct Scan - [address] [id number] Social History Tobacco Use Types Packs/Day Years Used Date Smoking Tobacco: Never Assessed Comments Unknown Sex and Gender Information Value Date Recorded Sex Assigned at Not on file Legal Sex Female 4:55 PM EST Gender Identity Not on file Sexual Orientation Not on file documented as of this encounter Functional Status * Calculated C-SSRS Risk Score (Lifetime/Recent) Answer Date of Assessment Author No Risk Indicated 09/17/2022 5:18 PM Josie Dominguez RN * [place] Suicide Severity Rating Scale (Screener/Recent Self-Report) Question Answer Date of Assessment Author 1. Wish to be (Past 1 Month) No 023 5:18 PM Josie Dominguez RN 2. Non-Specific Active Suici abhiijt Thoughts (Past 1 Month) No 09/17/2022 5:18 PM Ramses Dominguez RN 6. Suicidal Behavior (Lifetime) No 3 5:18 PM Josie Dominguez RN documented as of this encounter Plan of Treatment Not on file documented as of this encounter Visit Diagnoses Not on filedocumented in this encounter Care Teams Gun Stock Maker Relationship Specialty Start Date End Date Joan Tovar MD [facility] [place] [id number] PCP - General Internal Medicine 09/17/22 documented as of this encounter Additional Source Comments The information contained in this document represents components of the legal health record. It is not the complete legal health record.[facility]
--- OUTSIDE RECORDS SUMMARY | 2025-03-28 11:38 | XMS_ITS | Clinical Summary ---
Author Organization [facility] Address [address] [place] [phone] Phone Care Team Providers Care Seat Installer Name Role Phone Joan Tovar MD Primary Care Provider Allergies Active Allergy Reactions Criticality Noted Date Comments Sumatriptan 09/17/2022 Social History Tobacco Use Types Packs/Day Years Used Date Smoking Tobacco: Never Assessed Education Answer Date Recorded Are you interested in more education? Not on venkata e 11/06/2022 Are you concerned about learning? Not on file 11/06/2022 No 11/06/2022 No 11/06/2022 Digital Access Answer Date Recorded No 12/07/2022 No 12/07/2022 Reliable internet access at home? Not on file 12/07/2022 Device with a working camera? Not on file Intimate Partner Violence Answer Date R ecorded Are you denied basic needs s uch as food, clothing, or medical care? No 07/22/2023 In the past 12 months have y ou been in a relationship with a person who hurts, threatens, or tries to control you? No 07/22/2023 Are you denied basic needs s uch as food, clothing, or medical care? No 07/22/2023 In the past 12 months have y ou been in a relationship with a person who hurts, threatens, or tries to control you? No 07/22/2023 Comments Unknown Sex and Gender Information Value Date Recorded Sex Assigned at Not on file Legal Sex Female 4:55 PM EST Gender Identity Not on file Sexual Orientation Not on file Last Filed Vital Signs Vital Sign Reading Time Taken Comments Blood Pressure 117/76 07/22/2023 4:20 PM EST Pulse 90 07/22/2023 4:20 PM EST Temperature 37.2 C (98.9 F) 07/22/2023 4:20 PM EST Respiratory Rate 16 07/22/2023 4:20 PM EST Oxygen Saturation 97% 07/22/2023 4:20 PM EST Inhaled Oxygen Concentration - - Weight 71.7 kg (158 lb) 07/22/2023 1:29 PM EST Height 149.9 cm (4' 11 ) 07/22/2023 1:29 PM EST Body Mass Index 31.91 07/22/2023 1:29 PM EST Plan of Treatment Not on file Medical Devices [place] [id number] Care Teams Seat Installer Relationship Specialty Start Date End Date Joan Tovar MD [facility] [place] [address] PCP - General Internal Medicine 09/17/22 Additional Source Comments The information contained in this document represents components of the legal health record. It is not the complete legal health record.[facility]
== END 2025-03-28 12:00 | disposition home or self-care (01) ==
LOC: HO.HMCC 09:55
PROVIDERS: PCP Internal Medicine; Visit Provider Internal Medicine
DX: R51.9 Headache, unspecified (principal)

== ENCOUNTER → 2025-03-28 09:55 | Outpatient (BNVA) | payer OTHER, SELFPAY | PROVIDERS: PCP Internal Medicine; Visit Provider Internal Medicine | DX: G43.909 Migraine, unspecified, not intractable, without status migrainosus (principal) | CPT/HCPCS: 99212 ==

== ENCOUNTER 2025-04-29 14:47 | Outpatient (AMB) | payer OTHER, SELFPAY ==
--- NOTE | 2025-04-29 14:46 | A.OFFVIS_ITS ---
Vital Signs 04/29/25 15:05 Height 4 ft 11 in Weight 150 lb BMI 30.3 BP 112/74 Blood Pressure Location Rt brachial Position Sitting Respiration 16 Pulse 75 Pulse Source Pulse Oximeter Pulse Oximetry (%) 98 Oxygen Delivery Method Room Air Intake Visit Reasons: headache Hoop Maker Helper Machine Required: No Allergies sumatriptan Adverse Reaction (Unknown, Verified 04/29/25 15:20) vomiting Medication List - Last Reconciled 04/29/25 by Steff Link CNP albuterol sulfate 90 mcg/actuation (ProAir HFA) 2 puffs inhalation Q4-6H PRN lxlolidmih-ypxvpjrhmblli-erww 50-325-40 mg 1 tab PO Q12H PRN NS fluticasone propionate 50 mcg/actuation (Children's Flonase Allergy Relief) 2 sprays intranasal DAILY rimegepant (Nurtec ODT) 75 mg PO Q OTHER DAY PRN 30 days topiramate 25 mg PO DAILY 90 days HPI Comments Details: Marcella is a 30-year-old female patient with a past medical history of asthma who is presenting to the clinic for a headache evaluation. According to referral notes from primary care, she was seen in follow-up for a recent emergency room visit she has been seen at [facility] emergency room reporting a 5 day history of pain behind her right eye spreading to both eyes. This was atypical for her usual headache presentation. She denied any accompanying photophobia, visual changes, head traumas, fever but did note some nausea. She had no other deficits. Ibuprofen home without relieving her pain. CT scan of the brain performed in the emergency room was unremarkable. She was treated with IV Toradol, Compazine, Benadryl, and IV with and given a dose of Decadron with improvement in her headaches. She was given a short prescription for fioricet and given a referral to neurology for headache evaluatino and management. Today the patient reports that she was seen here in the past but about 6 years ago. She has been treated for migraines successfully with low-dose topiramate at bedtime. Over time, her migraines improved and she self discontinued the topiramate. She has been doing well off of medications for years until she had her son approximately 1 year ago. Over the course of the last year her migraines have been ramping up and becoming more frequent and has been longer in duration and more severe. Since going to the emergency room a few weeks ago, she feels that her migraines have been nearly constant. She did get partial relief with the migraine cocktail though a couple of days later her headache came back. She feels that she has some level of headache all of the time though intensity and severity of her headaches do vary day today. On average, she has an intense headache approximately 5 days per week. Her pain is typically unilateral but can be frontal, occipital, or to the crown of her head. She has a accompanying nausea, light sensitivity, and sound sensitivity. She denies any positional component. She denies any visual aura though when her headaches become most severe she does experience some blurry vision. She notes in the past she has had success with the topiramate and tolerated it well at a 25 mg daily dose. Headache characteristics: Time of onset: Teenager Location:Variable but often unilateral to the parietal or occipital areas Radiation:No Positional component:No Character: Variable but often throbbing and pulsating Severity: Can reach 10/10 requiring emergency room evaluation Duration: Can last a full week Frequency: Has been occurring daily for the last couple of weeks and prior to this has been at least 5 days per week over the last few months. Acute aggravating factors: Movement and any increase in activity Acute relieving factors: Rest and darkness Associated symptoms: Nausea, light sensitivity, and sound sensitivity and rarely some blurry vision Aura: None Headache triggers: Unknown Relation to menses: Currently on nexplanon for control. No obvious pattern with menses. Other related background information: Sleep: Awakes frequently due to children and also awakes frequently on her own. She does have some gasping arousals Stressors: Works 40hrs per week and has 2 young children at home Hydration: 3 oz per day Caffeine intake:Drinks 1-2 caffininated beverages per day Alcohol intake:None Substance use:Marijuana daily Tobacco use: None Last eye exam: Within the last year- normal exam. Last dental visit:Not since age 18. Denies clenching or grinding. History of head injury:No Family planning considerations:Currently on nexplanon. No plans for becoming . Past medication trials: Sumatriptan- Severe hot flashes, vomiting, and lightheadedness Fioricet- Currently taking with marginal benefit Topiramate 25mg - worked well in the past Prior workup: CT brain at [facility]- Per records was a normal study but imaging is not available for my review. [facility] Medical History Lumbago Obesity (BMI 30.0-34.9) Chronic cough History of COVID-19 OROPEZA (dyspnea on exertion) Cholelithiasis Vitamin D deficiency Witnessed apneic spells Surgical History Hx laparoscopic cholecystectomy History of eye surgery History of tonsillectomy Family History Father Unknown family medical history Mother Unknown family medical history Substance use disorder Brother No problems noted. Brother No problems noted. Brother No problems noted. Brother No problems noted. Brother No problems noted. Sister No problems noted. Sister No problems noted. Father Substance use disorder Social History Housing: Apartment Alcohol intake: current Alcohol intake frequency: a few times a month Patient Tobacco Use Status: Never used Tobacco e-Cigarette/Vaping Use: Never Used service: No Current occupational status: employed Cognitive needs: No Hearing needs: No Vision needs: Yes Review of Systems Const All systems reviewed & are unremarkable except as noted in HPI and below Physical Exam Const General: cooperative, healthy appearing, comfortable and no acute distress Nutritional Appearance: well nourished Orientation/consciousness: patient oriented x3 Limitations: no limitations HEENT Head: Yes normal to inspection and Yes normocephalic Eyes General: appearance normal, both eyes and all related structures Visual Reyes: normal visual reyes by confrontation Alignment and Position: alignment normal Periorbital: periorbital findings normal Eyelids: Yes eyelids normal Conjunctivae: conjunctivae normal Sclerae: sclerae normal Direct Ophthalmoscopy: normal light reflex, no papilledema and fundi normal bilaterally Neuro General: patient oriented x3, tone normal and deep tendon reflexes 2+ bilaterally Cranial nerves: Yes CN's II-XII intact bilaterally and Yes Facial sensation intact/muscles of mastication intact Cognition (Neuro): normal cognition Gait exam (Neuro): Normal gait present Motor exam (neuro): 5/5 motor strength present throughout and no tremor noted Sensory Exam: double simultaneous stimulation for sensation normal Romberg Test: Negative Pupils: Normal pupillary reactivity/response: bilateral Psych Appearance: grossly normal Mental Status: mental status grossly normal Speech and movement: Normal speech and movement present and Clear speech present Affect: normal affect Attitude: cooperative Thought process: Normal thought process present Thought content: Normal thought content present Insight: Good insight present (Psych) Judgement: Good judgement present (Psych) Assessment & Plan Assessment & Plan (1) Chronic migraine without aura without status migrainosus, not intractable: Code(s): G43.709 - Chronic migraine without aura, not intractable, without status migrainosus Category: Medical Plan Marcella is a 30-year-old female patient with a past medical history of asthma who is presenting to the clinic for a headache evaluation. Her headaches are consistent with chronic migraine. She has responded well to topiramate in the past. We will restart this for migraine prevention. She does have means of protection of at this time and we did review teratogenic effects of topiramate should she consider in the future. She was counseled on increasing her water intake as part of a means for added prevention. In terms of her acute therapy, she has had a very serious adverse reaction to sumatriptan in the past which included vomiting. I would consider the degree of her reaction an allergy and would avoid Triptan moving forward. For acute ther apy, I would like to start her on Nurtec 75 mg as needed. -start topiramate 25 mg at bedtime -start a trial of Nurtec 75 mg as needed for acute therapy -follow up in 2 months or sooner if needed Medications: New rimegepant (Nurtec ODT) 75 mg PO Q OTHER DAY PRN 8 tabs 5RF migraine headache 30 days topiramate 25 mg PO DAILY 90 tabs 3RF 90 days Coding Level of Care Code New Pt Level 4 (90209) Diagnoses Chronic migraine without aura without status migrainosus, not intractable G43.709
[2025-04-29 15:05] VITALS: BP 112/74; PULSE 75; RESP 16; O2SAT 98; BMI 30.3
--- OUTSIDE RECORDS SUMMARY | 2025-04-29 18:44 | XMS_ITS | Encounter Summary ---
Author Organization [facility] Address [address] [place] [phone] Phone Care Team Providers Care Grinder Set Up Operator Thread Name Role Phone Joan Tovar MD Primary Care Provider Encounter Details Date Type Department Care Team (Late st Contact Info) Description 09/17/2022 Procedure Pass [facility], Ct Scan - [address] [address] Social History Tobacco Use Types Packs/Day Years [...] 09/17/2022 5:18 PM Josie Dominguez RN * [place] Suicide Severity Rating Scale (Screener/Recent Self-Report) Question Answer Date of Assessment Author 1. Wish to be (Past 1 Month) No 023 5:18 PM Josie Dominguez RN 2. Non-Specific Active Suici abhijit Thoughts (Past 1 Month) No 09/17/2022 5:18 PM Ramses Dominguez RN 6. Suicidal Behavior (Lifetime) No 3 5:18 PM Josie Dominguez RN documented as of this encounter Plan of Treatment Not on file documented as of this encounter Visit Diagnoses Not on filedocumented in this encounter Care Teams Grinder Set Up Operator Thread Relationship Specialty Start Date End Date Joan Tovar MD [facility] [place] [address] PCP - General Internal Medicine 09/17/22 documented as of this encounter Additional Source Comments The information contained in this document represents components of the legal health record. It is not the complete legal health record.[facility]
--- OUTSIDE RECORDS SUMMARY | 2025-04-29 18:45 | XMS_ITS | Clinical Summary ---
Author Organization [facility] Address [address] [place] [phone] Phone Care Team Providers Care Personal Lines Account Manager Name Role Phone Joan Tovar MD Primary [...] Medical Devices Not on file Insurance ACO Care Teams Personal Lines Account Manager Relationship Specialty Start Date End Date Joan Tovar MD [facility] [place] [address] PCP - General Internal Medicine 09/17/22 Additional Source Comments The information contained in this document represents components of the legal health record. It is not the complete legal health record.[facility]
== END 2025-04-29 15:31 | disposition home or self-care (01) ==
LOC: HO.HSM 14:47
PROVIDERS: PCP Internal Medicine; Visit Provider Nurse Practitioner
DX: G43.709 Chronic migraine without aura, not intractable, without status migrainosus (principal)
CPT/HCPCS: 99204

== ENCOUNTER → 2025-04-29 14:47 | Outpatient (BNVA) | payer OTHER, SELFPAY | PROVIDERS: PCP Internal Medicine; Visit Provider Nurse Practitioner | DX: G43.709 Chronic migraine without aura, not intractable, without status migrainosus (principal) | CPT/HCPCS: 99202 ==

== ENCOUNTER 2025-06-26 15:28 | Outpatient (AMB) | payer OTHER, SELFPAY ==
--- NOTE | 2025-06-26 15:32 | A.OFFVIS_ITS ---
Intake Visit Reasons: 2M MIGRAINE Allergies sumatriptan Adverse Reaction (Unknown, Verified 04/29/25 15:20) vomiting Medication List - Last Reconciled 06/26/25 by Kingsley Chase MD albuterol sulfate 90 mcg/actuation (ProAir HFA) 2 puffs inhalation Q4-6H PRN geapwgdyms-myazhzvinmfew-hptj 50-325-40 mg 1 tab PO Q12H PRN NS fluticasone propionate 50 mcg/actuation (Children's Flonase Allergy Relief) 2 sprays intranasal DAILY rimegepant (Nurtec ODT) 75 mg PO Q OTHER DAY PRN 30 days HPI Comments Details: Marcella was doing well with her migraine with no migraine, but stopped her Topiramate 1 week ago as she had brain fog and was noted to have work impairment. She had taken Topiramate 7 yr sago with no issues. She has a history of asthma who is presenting to the clinic for a headache evaluation. According to referral notes from primary care, she was seen in follow-up for a recent emergency room visit she has been seen at [facility] emergency room reporting a 5 day history of pain behind her right eye spreading to both eyes. This was atypical for her usual headache presentation. She denied any accompanying photophobia, visual changes, head traumas, fever but did note some nausea. She had no other deficits. Ibuprofen home without relieving her pain. CT scan of the brain performed in the emergency room was unremarkable. She was treated with IV Toradol, Compazine, Benadryl, and IV with and given a dose of Decadron with improvement in her headaches. She was given a short prescription for akilah payan and given a referral to neurology for headache evaluatino and management. Today the patient reports that she was seen here in the past but about 6 years ago. She has been treated for migraines successfully with low-dose topiramate at bedtime. Over time, her migraines improved and she self discontinued the topiramate. She has been doing well off of medications for years until she had her son approximately 1 year ago. Over the course of the last year her migraines have been ramping up and becoming more frequent and has been longer in duration and more severe. Since going to the emergency room a few weeks ago, she feels that her migraines have been nearly constant. She did get partial relief with the migraine cocktail though a couple of days later her headache came back. She feels that she has some level of headache all of the time though intensity and severity of her headaches do vary day today. On average, she has an intense headache approximately 5 days per week. Her pain is typically unilateral but can be frontal, occipital, or to the crown of her head. She has a accompanying nausea, light sensitivity, and sound sensitivity. She denies any positional component. She denies any visual aura though when her headaches become most severe she does experience some blurry vision. She notes in the past she has had success with the topiramate and tolerated it well at a 25 mg daily dose. Headache characteristics: Time of onset: Teenager Location:Variable but often unilateral to the parietal or occipital areas Radiation:No Positional component:No Character: Variable but often throbbing and pulsating Severity: Can reach 10/10 requiring emergency room evaluation Duration: Can last a full week Frequency: Has been occurring daily for the last couple of weeks and prior to this has been at least 5 days per week over the last few months. Acute aggravating factors: Movement and any increase in activity Acute relieving factors: Rest and darkness Associated symptoms: Nausea, light sensitivity, and sound sensitivity and rarely some blurry vision Aura: None Headache triggers: Unknown Relation to menses: Currently on nexplanon for control. No obvious pattern with menses. Other related background information: Sleep: Awakes frequently due to children and also awakes frequently on her own. She does have some gasping arousals Stressors: Works 40hrs per week and has 2 young children at home Hydration: 3 oz per day Caffeine intake:Drinks 1-2 caffininated beverages per day Alcohol intake:None Substance use:Marijuana daily Tobacco use: None Last eye exam: Within the last year- normal exam. Last dental visit:Not since age 18. Denies clenching or grinding. History of head injury:No Family planning considerations:Currently on nexplanon. No plans for becoming . Past medication trials: Sumatriptan- Severe hot flashes, vomiting, and lightheadedness Fioricet- Currently taking with marginal benefit Topiramate 25mg - worked well in the past Prior workup: CT brain at [facility]- Per records was a normal study but imaging is not available for my review. [facility] Medical History Lumbago Obesity (BMI 30.0-34.9) Chronic cough History of COVID-19 OROPEZA (dyspnea on exertion) Cholelithiasis Vitamin D deficiency Witnessed apneic spells Surgical History Hx laparoscopic cholecystectomy History of eye surgery History of tonsillectomy Family History Father Unknown family medical history Mother Unknown family medical history Substance use disorder Brother No problems noted. Brother No problems noted. Brother No problems noted. Brother No problems noted. Brother No problems noted. Sister No problems noted. Sister No problems noted. Father Substance use disorder Social History Housing: Apartment Alcohol intake: current Alcohol intake frequency: a few times a month Patient Tobacco Use Status: Never used Tobacco e-Cigarette/Vaping Use: Never Used service: No Current occupational status: employed Cognitive needs: No Hearing needs: No Vision needs: Yes Review of Systems Const All systems reviewed & are unremarkable except as noted in HPI and below Physical Exam Const General: cooperative, healthy appearing, comfortable and no acute distress Nutritional Appearance: well nourished Orientation/consciousness: patient oriented x3 Limitations: no limitations HEENT Head: Yes normal to inspection and Yes normocephalic Eyes General: appearance normal, both eyes and all related structures Visual Reyes: normal visual reyes by confrontation Alignment and Position: alignment normal Periorbital: periorbital findings normal Eyelids: Yes eyelids normal Conjunctivae: conjunctivae normal Sclerae: sclerae normal Direct Ophthalmoscopy: normal light reflex, no papilledema and fundi normal bilaterally Neuro General: patient oriented x3, tone normal and deep tendon reflexes 2+ bilaterally Cranial nerves: Yes CN's II-XII intact bilaterally and Yes Facial sensation intact/muscles of mastication intact Cognition (Neuro): normal cognition Gait exam (Neuro): Normal gait present Motor exam (neuro): 5/5 motor strength present throughout and no tremor noted Sensory Exam: double simultaneous stimulation for sensation normal Romberg Test: Negative Pupils: Normal pupillary reactivity/response: bilateral Psych Appearance: grossly normal Mental Status: mental status grossly normal Speech and movement: Normal speech and movement present and Clear speech present Affect: normal affect Attitude: cooperative Thought process: Normal thought process present Thought content: Normal thought content present Insight: Good insight present (Psych) Judgement: Good judgement present (Psych) Assessment & Plan Assessment & Plan (1) Chronic migraine without aura without status migrainosus, not intractable: Code(s): G43.709 - Chronic migraine without aura, not intractable, without status migrainosus Category: Medical Plan Marcella is a 30-year-old female patient with a past medical history of asthma who has chronic migraine. She has responded well to topiramate 25mg in the past.Had to stop it after 7 weeks because of brain fog impairing work performance. If her migraine frequency tics up again, she will restart the topiramate 25 mg but take it at 18:00 rather than in the morning as she was doing. If it still gives her the brain fog she could try a half a pill, otherwise she would need to be switched to a different prophylactic therapy. She will make a follow-up appointment with Verena in 6 weeks For abortive treatment she has had a very serious adverse reaction to sumatriptan in the past which included vomiting. I would consider the degree of her reaction an allergy and would avoid Triptan moving forward. For acute therapy, I would like to start her on Nurtec 75 mg as needed. She also has Fioricet for PRN use Coding Level of Care Code Est Pt Level 4 (23908) Diagnoses Chronic migraine without aura without status migrainosus, not intractable G43.709
--- OUTSIDE RECORDS SUMMARY | 2025-06-26 20:24 | XMS_ITS | Clinical Summary ---
Author Organization [facility] Address [address] [place] [phone] Phone Care Team Providers Care Treating And Pumping Supervisor Name Role Phone Joan Tovar MD Primary [...] Not on file Insurance ACO Care Teams Treating And Pumping Supervisor Relationship Specialty Start Date End Date Joan Tovar MD [facility] [place] [address] PCP - General Internal Medicine 09/17/22 Additional Source Comments The information contained in this document represents components of the legal health record. It is not the complete legal health record.[facility]
--- OUTSIDE RECORDS SUMMARY | 2025-06-26 20:24 | XMS_ITS | Encounter Summary ---
Author Organization [facility] Address [address] [place] [phone] Phone Care Team Providers Care Rn Assessment Name Role Phone Joan Tovar MD Primary Care Provider Encounter Details Date Type Department Care Team (Late st Contact Info) Description 09/17/2022 Procedure Pass [facility], Ct Scan - [address] [address] Social History Tobacco Use Types Packs/Day Years [...] 09/17/2022 5:18 PM Josie Dominguez RN * [place] Suicide Severity Rating Scale (Screener/Recent Self-Report) Question [...] on filedocumented in this encounter Care Teams Rn Assessment Relationship Specialty Start Date End Date Joan Tovar MD [employer] [facility] [place] [address] PCP - General Internal Medicine 09/17/22 documented as of this encounter Additional Source Comments The information contained in this document represents components of the legal health record. It is not the complete legal health record.[facility]
== END 2025-06-26 15:46 | disposition home or self-care (01) ==
LOC: HO.HSM 15:28
PROVIDERS: PCP Internal Medicine; Visit Provider Psychiatry & Neurology Neurology
DX: G43.709 Chronic migraine without aura, not intractable, without status migrainosus (principal)
CPT/HCPCS: 99214

== ENCOUNTER → 2025-06-26 15:28 | Outpatient (BNVA) | payer OTHER, SELFPAY | PROVIDERS: PCP Internal Medicine; Visit Provider Psychiatry & Neurology Neurology | DX: G43.709 Chronic migraine without aura, not intractable, without status migrainosus (principal); Z79.899 Other long term (current) drug therapy | CPT/HCPCS: 99212 ==

== ENCOUNTER 2025-07-01 15:50 | Outpatient (AMB) | payer OTHER, SELFPAY ==
--- NOTE | 2025-07-01 16:18 | MHC.PC.OV ---
Vital Signs 07/01/25 16:19 Height 4 ft 11 in Weight 148 lb BMI 29.9 BP 100/64 Blood Pressure Location Lt brachial Position Sitting Respiration 16 Pulse 78 Pulse Source Pulse Oximeter Temp 98.9 F Temp Source Oral Pulse Oximetry (%) 100 Oxygen Delivery Method Room Air Intake Visit Reasons: PE Intake Note: Pt is here today for her PE: Last papsmear 12/02/21 Director Digital Communications Required: No Is last menstrual period known: Yes Last menstrual period: 06/01/25 Allergies sumatriptan Adverse Reaction (Unknown, Verified 07/01/25 16:31) vomiting Medication List - Last Reconciled 07/01/25 by Joan Tovar MD albuterol sulfate 90 mcg/actuation (ProAir HFA) 2 puffs inhalation Q4-6H PRN fluticasone propionate 50 mcg/actuation (Children's Flonase Allergy Relief) 2 sprays intranasal DAILY rimegepant (Nurtec ODT) 75 mg PO Q OTHER DAY PRN 30 days topiramate 12.5 mg PO QPM Tobacco use date assessed: 07/01/25 Dental Screening Dental Screen Date: 07/01/25 HPI PE HPI Details The patient is a 30 year old female presenting for her physical exam. The patient reports hip pain that began during her and describes it as a feeling of being stuck , with an associated audible clicking sound. She states that physical therapists noted the clicking during her but advised her it was normal. The pain is localized to her hip and is not associated with back pain. He is currently being followed by Neurology for her migraine headaches. She was previously on topiramate 25 mg but stopped it due to significant brain fog. She is planning to start taking the medication at a reduced dose of 12.5 mg in the afternoon, which she has not yet started. She uses Nurtec ODT as needed for acute migraines and has discontinued Fioricet. Past obstetric history includes two vaginal deliveries. She uses a Nexplanon implant for contraception and continues to have regular periods. Her family history is positive for diabetes. Social history is notable for marijuana (Sativa) use, which she reports using instead of a pressure medication. She is up-to-date with her eye exam and has had a Pap smear since her last delivery. [facility] Medical History (Updated 07/01/25 @ 16:41 by Joan Tovar MD) Chronic right hip pain Lumbago Obesity (BMI 30.0-34.9) Chronic cough History of COVID-19 OROPEZA (dyspnea on exertion) Cholelithiasis Vitamin D deficiency Witnessed apneic spells Surgical History Hx laparoscopic cholecystectomy History of eye surgery History of tonsillectomy Family History Father Unknown family medical history Mother Unknown family medical history Substance use disorder Brother No problems noted. Brother No problems noted. Brother No problems noted. Brother No problems noted. Brother No problems noted. Sister No problems noted. Sister No problems noted. Father Substance use disorder Social History Housing: Apartment Alcohol intake: current Alcohol intake frequency: a few times a month Patient Tobacco Use Status: Never used Tobacco e-Cigarette/Vaping Use: Never Used Substance Use Type: Marijuana service: No Current occupational status: employed Cognitive needs: No Hearing needs: No Vision needs: Yes Female Reproductive History Menstrual Date of last menstrual period: 06/01/25 control method: implanted Questionnaire PHQ-9 Over the last 2 weeks, how often have you been bothered by any of the following problems? 1. Little interest or pleasure in doing things: not at all 2. Feeling down, depressed, or hopeless: not at all 3. Trouble falling or staying asleep, or sleeping too much: several days 4. Feeling tired or having little energy: several days 5. Poor appetite or overeating: several days 6. Feeling bad about yourself - or that you are a failure or have let yourself or your family down: not at all 7. Trouble concentrating on things, such as reading the newspaper or watching television: not at all 8. Moving or speaking so slowly that other people could have noticed. Or the opposite - being so fidgety or restless that you have been moving around a lot more than usual: not at all 9. Thoughts that you would be better off or of hurting yourself in some way: not at all Total score: 3 Depression Screening Interpretation: Negative Depression Screening Done: Yes 18516 - PHQ-9 Billing: Yes Source: Developed by Drs. Quan Vera, Corinne Brunner, Ramos Motta and colleagues, with an educational tex from [employer]. Thrive Questionnaire Date Thrive assessed: 07/01/25 I am a: Patient What is your living situation today?: I choose not to answer this question Within the past 12 months, did the food you bought not last and you didn't have the money to get more?: Never true Within the past 12 months, did you worry whether your food would run out before you got money to buy more?: I choose not to answer this question Do you have trouble paying for medicines?: I choose not to answer this question Do you have trouble getting transportation to medical appointments?: I choose not to answer this question Do you have trouble paying your heating and electricity bill?: I choose not to answer this question Do you have trouble taking care of your child, family member or friend?: I choose not to answer this question Do you have trouble with day-to-day activities such as bathing, preparing meals, shopping, managing finances, etc.?: I choose not to answer this question Are you currently unemployed and looking for a job?: I choose not to answer this question Are you interested in more education?: I choose not to answer this question Please select the resources that you would like help with: None Currently or been in a relationship where the following occur: I choose not to answer THRIVE Score: 0 AUDIT C Alcohol Use Questionnaire (AUDIT-C) 1. How often do you have a drink containing alcohol?: Monthly or less 2. How many drinks containing alcohol do you have on a typical day when you are drinking?: 1 or 2 3. How often do you have six or more drinks on one occasion?: Never Total Score: 1 Score Reviewed/Action Taken: Yes ADAN-7 AMB Questionnaire ADAN-7 Date ADAN - 7 assessed: 07/01/25 Feeling nervous, anxious, or on edge: 1 = Several days Not being able to stop or control worryin = Not at all Worrying too much about different things: 0 = Not at all Trouble relaxin = Not at all Being so restless that it is hard to sit still: 0 = Not at all Becoming easily annoyed or irritable: 0 = Not at all Feeling afraid as if something awful might happen: 0 = Not at all Total ADAN-7 score (0-4 normal; 5-9 mild; 10-14 moderate; 15-21 severe): 1 Source: Developed by Drs. Quan Vera, Corinne Brunner, Ramos Motta and colleagues, with an educational tex from [employer]. Review of Systems Const Reports no additional complaints Eyes Denies change in vision ENT Reports no additional complaints Card Denies chest pain, Denies chest pain with activity and Denies lightheadedness Resp Reports as per HPI GI Reports no additional complaints Reports no additional complaints Musc Reports no additional complaints and Reports as per HPI Skin/Breast Denies lesions Neuro Reports no additional complaints Psych Reports no additional complaints Endo Reports no additional complaints Ace/Lymph Reports no additional complaints Aller/Immun Reports no additional complaints Physical exam (Primary Care) Vital Signs: Last Vital Signs Temp 98.9 F 07/01/25 16:19 Pulse 78 07/01/25 16:19 Resp 16 07/01/25 16:19 BP 100/64 07/01/25 16:19 Pulse Ox 100 07/01/25 16:19 Oxygen Delivery Method Room Air 07/01/25 16:19 BMI result Body Mass Index 29.9 Tobacco/Smoking Status: Tobacco use Status Tobacco use date assessed 07/01/25 07/01/25 16:22 Patient Tobacco Use Status Never used Tobacco 07/01/25 16:46 e-Cigarette/Vaping Use Never Used 07/01/25 16:46 PHQ-9: PHQ-9 Score PHQ-9: Total score 3 07/08/25 02:10 Depression Screening Interpretation: Negative Thrive Assessment: Date of Thrive Assessment Date Thrive assessed 07/01/25 07/01/25 16:22 Currently or been in a relationship where the following occur: I choose not to answer Advance Care Planning discussion: Completed/Scanned Date of discussion: 07/01/25 Who was present: Patient Forms completed: Health Care Proxy Time spent: 16-45 minutes Actual minutes spent: 3 Const General: no acute distress Nutritional Appearance: obese Orientation/consciousness: patient oriented x3 HENMT General nose exam: Normal external nose present Mouth: Normal oral and palatal mucosa present, oropharynx normal and moist mucous membranes Eyes General: appearance normal, both eyes and all related structures Neck Other: Supple with no lymphadenopathy, thyroid gland nonpalpable Chest Breast/axilla palpation: normal palpation of the breasts Resp Auscultation: clear to auscultation bilaterally Cardio Other: S1-S2 present regular rate and rhythm GI Inspection: Yes obesity Palpation (GI): Soft to palpation, nontender and no guarding Auscultation: normal bowel sounds General: Yes no CVA tenderness Back/Spine/Pelvis Back: no CVA tenderness and No back tenderness Skin General skin exam: no rashes or lesions noted Neuro General: patient oriented x3, gait normal, moves all extremities, Normal light touch and pain sensation, no focal motor deficits and CN's II-XI intact bilaterally Extrem General: Yes full ROM, Yes no joint enlargement, Yes no clubbing, cyanosis or edema and Yes normal gait Psych Affect: normal affect Coding Level of Care Code Est Pt Prev Care 18-39y(50996) Diagnoses Annual visit for general adult medical examination with abnormal findings Z00.01 Chronic right hip pain M25.551; G89.29 Chronic migraine without aura without status migrainosus, not intractable G43.709 Advance directive discussed with patient Z71.89 Additional Codes PHQ-9 - 16715 - PHQ-9 Billing: Yes ([id number]) Vital Signs *Quality* - Advance Care Planning discussion: Completed/Scanned ([id number]) Vital Signs *Quality* - Time spent: 16-45 minutes ([id number]) Assessment & Plan Assessment & Plan (1) Annual visit for general adult medical examination with abnormal findings: Code(s): Z00.01 - Encounter for general adult medical examination with abnormal findings Plan: Will check appropriate labs. Recommended dental visit every 6 months and regular eye exams, at least every 2 years. Take adequate calcium in diet and vitamin-D 3 at 2000 IU per cap once a day, in addition to weight-bearing exercises to help maintain good muscle tone and weight control. Instructed to do self-breast exam, and recommended to get yearly mammogram, starting at age 40. Currently sees her own OBGYN her routine Pap and pelvic exam, with last Pap smear done in 2021 with benign findings. Received her COVID booster earlier this year, and is up-to-date with her Tdap but declines getting flu shot (2) Chronic right hip pain: Code(s): M25.551 - Pain in right hip; G89.29 - Other chronic pain Category: Medical Plan: X-ray of right hip ordered and will refer to physical therapy if indicated (3) Chronic migraine without aura without status migrainosus, not intractable: Code(s): G43.709 - Chronic migraine without aura, not intractable, without status migrainosus Category: Medical Plan: Followed currently by Neurology currently on Nurtec ODT and topiramate (4) Advance directive discussed with patient: Code(s): Z71.89 - Other specified counseling Plan: Initiated the conversation about Advanced Directives. Advanced Directives help patients prepare for current and future decisions about their medical treatment and place of care. Discussed with patient that it is a process where a patients current condition and prognosis are reviewed, their wishes for information regarding their illness are elicited, and likely medical dilemmas are presented and options discussed. Healthcare proxy form completed today. The form can be amended as needed, reviewed yearly and make changes as needed Orders: Orders XR hip BI w PEL1V 07/06/25 G89.29 - Other chronic pain, M25.551 - Pain in right hip Alanine Aminotransferase 07/06/25 G43.709 - Chronic migraine without aura, not intractable, without status migrainosus, Z00.01 - Encounter for general adult medical examination with abnormal findings, Z13.1 - Encounter for screening for diabetes mellitus, Z13.220 - Encounter for screening for lipoid disorders, Z71.89 - Other specified counseling Basic Metabolic Panel Fasting 07/06/25 G43.709 - Chronic migraine without aura, not intractable, without status migrainosus, Z00.01 - Encounter for general adult medical examination with abnormal findings, Z13.1 - Encounter for screening for diabetes mellitus, Z13.220 - Encounter for screening for lipoid disorders, Z71.89 - Other specified counseling Lipid Panel 07/06/25 G43.709 - Chronic migraine without aura, not intractable, without status migrainosus, Z00.01 - Encounter for general adult medical examination with abnormal findings, Z13.1 - Encounter for screening for diabetes mellitus, Z13.220 - Encounter for screening for lipoid disorders, Z71.89 - Other specified counseling Aspartate Amino Transferase 07/06/25 G43.709 - Chronic migraine without aura, not intractable, without status migrainosus, Z00.01 - Encounter for general adult medical examination with abnormal findings, Z13.1 - Encounter for screening for diabetes mellitus, Z13.220 - Encounter for screening for lipoid disorders, Z71.89 - Other specified counseling Complete Blood Count Auto Diff 07/06/25 G43.709 - Chronic migraine without aura, not intractable, without status migrainosus, Z00.01 - Encounter for general adult medical examination with abnormal findings, Z13.1 - Encounter for screening for diabetes mellitus, Z13.220 - Encounter for screening for lipoid disorders, Z71.89 - Other specified counseling Vitamin D 25-OH Total 07/06/25 G43.709 - Chronic migraine without aura, not intractable, without status migrainosus, Z00.01 - Encounter for general adult medical examination with abnormal findings, Z13.1 - Encounter for screening for diabetes mellitus, Z13.220 - Encounter for screening for lipoid disorders, Z71.89 - Other specified counseling
[2025-07-01 16:19] VITALS: BP 100/64; PULSE 78; RESP 16; TEMP 37.2; O2SAT 100; BMI 29.9
--- OUTSIDE RECORDS SUMMARY | 2025-07-01 18:40 | XMS_ITS | Encounter Summary ---
Author Organization [facility] Address [address] [place] [address] [place] [phone] Phone Care Team Providers Care Counselor Marriage And Family Name Role Phone Joan Tovar MD Primary Care Provider Encounter Details Date Type Department Care Team (Late st Contact Info) Description 09/17/2022 Procedure Pass [facility], Ct Scan - [address] [address] Social History Tobacco Use Types Packs/Day Years Used Date Smoking Tobacco: Never Assessed Comments Unknown Sex and Gender Information Value Date Recorded Sex Assigned at Not on file Legal Sex Female 4:55 PM EST Gender Identity Not on file Sexual Orientation Not on file documented as of this encounter Plan of Treatment Not on file documented as of this encounter Visit Diagnoses Not on filedocumented in this encounter Care Teams Counselor Marriage And Family Relationship Specialty Start Date End Date Joan Tovar MD [address] [place] [address] [place] [address] PCP - General Internal Medicine 09/17/22 documented as of this encounter Additional Source Comments The information contained in this document represents components of the legal health record. It is not the complete legal health record.[facility]
--- OUTSIDE RECORDS SUMMARY | 2025-07-01 18:40 | XMS_ITS | Clinical Summary ---
Author Organization [facility] Address [address] [place] [phone] Phone Care Team Providers Care Mechanical Maintenance Instructor Name Role Phone Joan Tovar MD Primary [...] Medical Devices [place] [id number] Care Teams Mechanical Maintenance Instructor Relationship Specialty Start Date End Date Joan Tovar MD [facility] [place] [address] PCP - General Internal Medicine 09/17/22 Additional Source Comments The information contained in this document represents components of the legal health record. It is not the complete legal health record.[facility]
== END 2025-07-01 16:56 | disposition home or self-care (01) ==
LOC: HO.HMCC 15:51
PROVIDERS: PCP Internal Medicine; Visit Provider Internal Medicine
DX: Z00.01 Encounter for general adult medical examination with abnormal findings (principal); M25.551 Pain in right hip; G89.29 Other chronic pain; G43.709 Chronic migraine without aura, not intractable, without status migrainosus; Z71.89 Other specified counseling; Z00.00 Encounter for general adult medical examination without abnormal findings

== ENCOUNTER → 2025-07-01 15:50 | Outpatient (BNVA) | payer OTHER, SELFPAY | PROVIDERS: PCP Internal Medicine; Visit Provider Internal Medicine | DX: Z00.01 Encounter for general adult medical examination with abnormal findings (principal); M25.551 Pain in right hip; G89.29 Other chronic pain; G43.709 Chronic migraine without aura, not intractable, without status migrainosus; Z71.89 Other specified counseling; Z13.31 Encounter for screening for depression; Z13.39 Encounter for screening examination for other mental health and behavioral disorders | CPT/HCPCS: 96127; 99395; 99497 ==

== ENCOUNTER 2025-07-06 08:34 | Outpatient (REF) | payer OTHER, SELFPAY ==
--- NOTE | ~2025-07-06 | XR_ITS ---
EXAMINATION: XR HIP 2 OR MORE VIEWS BILATERAL HISTORY: M25.551 - Pain in right hip COMPARISON: There are no prior studies available for comparison. FINDINGS: A single AP view of the pelvis and two views of each hip are submitted. Osseous mineralization is normal. There is no fracture or dislocation. The joint space is maintained. The soft tissues are unremarkable. XR/XR hip BI w PEL1V IMPRESSION: Unremarkable examination of the hips. Electronically signed by: Quan Glynn MD 07/08/2025 07:55 AM ASHLY MIRANDA
--- OUTSIDE RECORDS SUMMARY | 2025-07-06 08:37 | XMS_ITS | Encounter Summary ---
Author Organization [facility] Address [address] [place] [address] [place] [phone] Phone Care Team Providers Care Space Planner Name Role Phone Joan Tovar MD Primary Care Provider Encounter Details Date Type Department Care Team (Late st Contact Info) Description 09/17/2022 Procedure Pass [facility], Ct Scan - [address] [address] Social History Tobacco Use Types Packs/Day Years [...] on filedocumented in this encounter Care Teams Space Planner Relationship Specialty Start Date End Date Joan Tovar MD [address] [place] [address] [place] [address] PCP - General Internal Medicine 09/17/22 documented as of this encounter Additional Source Comments The information contained in this document represents components of the legal health record. It is not the complete legal health record.[facility]
--- OUTSIDE RECORDS SUMMARY | 2025-07-06 08:37 | XMS_ITS | Clinical Summary ---
Author Organization [facility] Address [address] [place] [phone] Phone Care Team Providers Care Rope Twisting Machine Operator Name Role Phone Joan oTvar MD Primary Care Provider Allergies Active Allergy [...] Not on file Insurance ACO Care Teams Rope Twisting Machine Operator Relationship Specialty Start Date End Date Joan Tovar MD [facility] [place] [address] PCP - General Internal Medicine 09/17/22 Additional Source Comments The information contained in this document represents components of the legal health record. It is not the complete legal health record.[facility]
[2025-07-06 11:13] LABS: MANUAL DIFF FLAG NO
[2025-07-06 11:16] LABS: Hematocrit 42.7 % (37.0-47.0); Hemoglobin 13.8 g/dl (12.0-16.0); Imm Gran Abs Auto 0.01 X10*3/uL (0.00-0.03); Imm Gran Pct Auto 0.2 % (0.0-0.4); Lymphocytes Absolute Auto 0.6 X10*3/uL (1.2-4.9); Mean Corpuscular HGB Conc 32.3 g/dl (31.0-35.0); Mean Corpuscular Hemoglobin 27.2 pg (27.0-33.0); Mean Corpuscular Volume 84.1 fL (80.0-98.0); NRBC Abs Auto 0.000 X10*3/uL (0.0-0.012); NRBC Pct Auto 0.0 /100WBC (0.0-0.2); Platelet Count 356 X10*3/uL (160-400); Red Blood Count 5.08 X10*6/uL (4.20-5.50); White Blood Count 5.6 X10*3/uL (4.8-10.8)
[2025-07-06 11:38] LABS: Alanine Aminotransferase 17 U/L (0-31); Anion Gap 12 (12-20); Aspartate Amino Transferase 18 U/L (5-31); Blood Urea Nitrogen 15 mg/dL (9-16); Calcium 8.8 mg/dL (8.4-10.2); Carbon Dioxide 24 mmol/L (22-29); Chloride 108 mmol/L (96-108); Cholesterol 157 mg/dL (<200); Estimated Glomerular Filt Rate > 60; HDL Cholesterol 55 mg/dL (>40); Potassium 3.6 mmol/L (3.3-5.1); Sodium 140 mmol/L (135-145); Triglycerides 62 mg/dL (<150)
== END 2025-07-06 08:35 | disposition home or self-care (01) ==
LOC: HO.HMGCX 08:34
PROVIDERS: PCP Internal Medicine; Visit Provider Internal Medicine
DX: G89.29 Other chronic pain (principal); Z00.01 Encounter for general adult medical examination with abnormal findings; Z13.220 Encounter for screening for lipoid disorders; Z13.1 Encounter for screening for diabetes mellitus; M25.551 Pain in right hip; G43.709 Chronic migraine without aura, not intractable, without status migrainosus; Z71.89 Other specified counseling
CPT/HCPCS: 36415; 73521; 80048; 80061; 82306; 84450; 84460; 85025

== ENCOUNTER → 2025-07-06 09:05 | Outpatient (BNV) | payer OTHER, SELFPAY | PROVIDERS: PCP Internal Medicine; Visit Provider Radiology Diagnostic Radiology | DX: M25.551 Pain in right hip (principal) | CPT/HCPCS: 73521 ==